=== PATIENT | female | born 1975 ===

== ENCOUNTER → 2017-08-17 | Emergency (ER) | payer OTHER ==
[~2017-08-17] VITALS: Ht 152.4 cm; Wt 76.2 kg
[~2017-08-17] MED LIST: KETO10TA2 PO; NORFLEX100MG PO
== END | disposition home or self-care (01) ==
LOC: ER 08:28
DX: S30.0XXA Contusion of lower back and pelvis, initial encounter (principal); S80.01XA Contusion of right knee, initial encounter; S60.211A Contusion of right wrist, initial encounter; W18.09XA Striking against other object with subsequent fall, initial encounter; Y93.89 Activity, other specified; Y92.69 Other specified industrial and construction area as the place of occurrence of the external cause; Y99.8 Other external cause status

== ENCOUNTER 2018-09-19 09:21 | Outpatient (CLI) | payer OTHER | END 2018-09-19 15:34 | disposition home or self-care (01) | LOC: LAB 09:21 | DX: D50.8 Other iron deficiency anemias (principal); D68.8 Other specified coagulation defects; N30.00 Acute cystitis without hematuria ==

== ENCOUNTER 2021-01-27 14:58 | Outpatient (CLI) | payer OTHER | END 2021-01-27 15:06 | disposition home or self-care (01) | LOC: SONOGRAMA 14:58 | PROVIDERS: ATTEND Specialist | DX: D25.1 Intramural leiomyoma of uterus (principal); D25.2 Subserosal leiomyoma of uterus ==